=== PATIENT | female | born 1955 | race American Indian/Alaskan Native ===

== ENCOUNTER 2022-02-10 14:03 | Emergency (ER) | payer MEDICARE ==
[2022-02-10 15:04] VITALS: BP 117/68
== END 2022-02-10 18:00 | disposition left against medical advice (07) ==
LOC: ED 14:03
DX: R22.0 Localized swelling, mass and lump, head (principal); Z53.21 Procedure and treatment not carried out due to patient leaving prior to being seen by health care provider